=== PATIENT | male | born 1945 | race Caucasian/White ===

== ENCOUNTER 2018-09-24 19:08 | Emergency (ER) | payer OTHER ==
[~2018-09-24] VITALS: Ht 175.3 cm; Wt 113.4 kg
[2018-09-24] MEDS ORDERED: METFORMIN HCL500 MG PO (19:25)
[2018-09-24] MEDS ORDERED: COZAAR 25 MG TA25 M1 PO (19:25)
[2018-09-24] MEDS ORDERED: HYDROCHLOROTHIA25 M2 PO (19:25)
[2018-09-24] MEDS ORDERED: LOPRESSOR50 PO (19:26)
[2018-09-24] MEDS ORDERED: NITROGLYCERIN0.4 MG SUBLING (19:26)
[2018-09-24] MEDS ORDERED: ASPIRIN325 PO (19:26)
[2018-09-24] MEDS ORDERED: CRESTOR40 MG PO (19:26)
[2018-09-24] MEDS ORDERED: UNICOMPLEX M TA1 TA1 PO (19:27)
[2018-09-24] MEDS ORDERED: PRILOSEC 20 MG20 MG PO (19:27)
[2018-09-24] MEDS ORDERED: CALCIUM 600 +1 EAC1 PO (19:27)
[2018-09-24] MEDS ORDERED: PYRIDOXINE HCL50 MG PO (19:27)
[2018-09-24] MEDS ORDERED: ZYRTEC10 M5 PO (19:28)
[2018-09-24 19:55] LABS: INFLUENZA A ANTIGEN None Detected (None Detect); INFLUENZA B ANTIGEN None Detected (None Detect)
[2018-09-24] MEDS ORDERED: MEDROLDOSEPACK PO (19:59)
[2018-09-24] MEDS ORDERED: VENTOLIN HFA 1818 GM INH ×2 (19:59→20:00)
[2018-09-24] MEDS ORDERED: PROMETH-CODEIN 65 ML PO (19:59)
[2018-09-24] MEDS ORDERED: ZPAK PO (19:59)
[2018-09-24 20:17] VITALS: BP 113/88
== END 2018-09-24 20:18 | disposition home or self-care (01) ==
LOC: M.ERS 19:08
PROVIDERS: Nurse Practitioner Family
DX: J20.9 Acute bronchitis, unspecified (principal); I10 Essential (primary) hypertension

== ENCOUNTER 2019-08-16 16:47 | Inpatient (IN) | payer OTHER ==
[~2019-08-16] VITALS: Ht 175.3 cm; Wt 108.4 kg
[~2019-08-16 16:47] MED LIST: ASPIRIN325 PO; CALCIUM 600 +1 EAC1 PO; COZAAR 25 MG TA25 M1 PO; CRESTOR40 MG PO; HYDROCHLOROTHIA25 M2 PO; LOPRESSOR50 PO; MEDROLDOSEPACK PO; METFORMIN HCL500 MG PO; NITROGLYCERIN0.4 MG SUBLING; PRILOSEC OTC20 MG PO; PROMETH-CODEIN 65 ML PO; PYRIDOXINE HCL50 MG PO; UNICOMPLEX M TA1 TA1 PO; VENTOLIN HFA 1818 GM INH; ZPAK PO; ZYRTEC10 M5 PO
[2019-08-16 17:32] VITALS: BP 152/68
[2019-08-16 17:44] LABS: INFLUENZA A ANTIGEN Positive (Negative); INFLUENZA B ANTIGEN Negative (Negative)
[2019-08-16 18:09] LABS: ABSOLUTE BASOPHILS 0.1 thou/uL (0.0-0.2); ABSOLUTE LYMPHOCYTES 1.4 thou/uL (0.8-5.3); ABSOLUTE MONOCYTES 1.4 thou/uL (0.0-1.2); ABSOLUTE NEUTROPHILS 7.5 thou/uL (1.6-8.1); BASOPHILS 0.8 %; EOSINOPHILS 0.1 %; HEMATOCRIT 42.3 % (42.0-52.0); HEMOGLOBIN 14.4 gm/dL (14.0-18.0); LYMPHOCYTES 13.9 %; MCH 28.7 pg (26.0-34.0); MCHC 34.2 g/dL (28.0-37.0); MCV 84.1 fL (80.0-100.0); MONOCYTES 13.1 %; MPV 7.9 fl. (7.2-11.1); NUCLEATED RBCS 0 /100WBC; PLATELET COUNT* 260 thou/uL (150-400); POLYS 72.1 %; RBC 5.03 mil/uL (4.50-6.00); RDW-CV 15.4 % (10.5-14.5); WBC 10.4 thou/uL (4.0-11.0)
[2019-08-16 18:20] LABS: CALCIUM 8.8 mg/dL (8.5-10.1); CREATININE 1.2 mg/dL (0.6-1.3); POTASSIUM 3.5 mmol/L (3.5-5.1)
[2019-08-16 18:25] LABS: ALBUMIN 3.9 g/dL (3.4-5.0); TOTAL BILIRUBIN 0.7 mg/dL (<0.1-1.0); TOTAL PROTEIN 7.8 g/dL (6.4-8.2)
[2019-08-16 21:48] VITALS: BP 140/76
--- NOTE | 2019-08-17 02:28 | NUR ---
PT ADMITTED TO FLOOR PER BED ACCOMPANEID BY ER STAFF WITH BELONGINGS. ORIENTED TO ROOM AND CALL LITE. PT DROWSY, DENIES PAIN OR PROBLEMS AT PRESENT. CALL LITE IN EASY REACH, BED ALARM ON FOR SAFETY. PLACED ON DROPLET PRECAUTIONS FOR +FLU A. WILL CONTINUE TO MONITOR AND PROVIDE CARES NEEDED.
[2019-08-17 02:30] VITALS: BP 102/53
[2019-08-17 02:48] VITALS: BP 106/45
[2019-08-17 05:27] LABS: ABSOLUTE LYMPHOCYTES 1.2 thou/uL (0.8-5.3); ABSOLUTE MONOCYTES 0.3 thou/uL (0.0-1.2); ABSOLUTE NEUTROPHILS 5.8 thou/uL (1.6-8.1); BASOPHILS 0.2 %; HEMATOCRIT 38.5 % (42.0-52.0); HEMOGLOBIN 13.4 gm/dL (14.0-18.0); MCH 29.2 pg (26.0-34.0); MCHC 34.8 g/dL (28.0-37.0); MCV 83.8 fL (80.0-100.0); MONOCYTES 3.8 %; MPV 7.8 fl. (7.2-11.1); NUCLEATED RBCS 0 /100WBC; PLATELET COUNT* 253 thou/uL (150-400); RBC 4.59 mil/uL (4.50-6.00); RDW-CV 15.2 % (10.5-14.5); WBC 7.3 thou/uL (4.0-11.0)
--- NOTE | 2019-08-17 05:41 | NUR ---
PT ADMIT TO FLOOR FROM ER BOARDING, HAS SLEPT WELL SINCE ADMIT. DENIES PAIN OR PROBLEMS. AM LABS. USING URINAL TO VOID.RAC IVF INFUSING PER PUMP. DROPLET ISOLATION FOR +FLU A. CALL LITE IN EASY REACH, BED ALARM ON FOR SAFETY.
[2019-08-17 05:55] LABS: CALCIUM 8.4 mg/dL (8.5-10.1); POTASSIUM 3.8 mmol/L (3.5-5.1)
[2019-08-17 08:00] VITALS: BP 126/62
--- NOTE | 2019-08-17 15:26 | NUR ---
CM ASSESSMENT: PT LIVES AT HOME ALONE. PT STATES HE IS INDEPENDENT AND DRIVES. DENIES NEEDS. CM WILL REMAIN AVAILABLE IF NEEDED
--- NOTE | 2019-08-17 18:17 | NUR ---
PT A&OX4 VSS. PT ON BEDREST TODAY. PT +FLU A. PT REMAINS ON ISOLATION PRECAUTIONS. PT USES URINAL AT BEDSIDE, BRIEFS FOR STRESS INCONTINENCE. PT IS ACCUCHECK, PO MEDICATIONS ADMINISTERED TO MANAGE DM. PT REMAINS FEBRILE THIS SHIFT. PT ON ROOM AIR, SAT 94%. PT HAS COUGH, BUT LUNGS SOUND CLEAR ON AUSCULTATION. IV TO RAC, NS RUNNING AT 100ML/HOUR. PT RESTS IN ROOM WITH CALL LIGHT IN REACH. WILL CONTINUE TO MONITOR.
[2019-08-17 19:40] VITALS: BP 128/63
--- NOTE | 2019-08-18 06:06 | NUR ---
PT ALERT AND ORIENTED. VSS ON RA. MEDS GIVEN PER EMAR. PT DENIES PAIN N/V THIS SHIFT. DROPLET ISOLATION FOR FLU A. FALL PRECAUTION IN PLACE. PT TO URINAL FOR VOIDING. CALL LIGHT WITHIN REACH. HOURLY ROUNDINGS MADE. WILL CONTINUE TO MONITOR.
[2019-08-18 07:40] VITALS: BP 124/64
--- NOTE | 2019-08-18 16:28 | NUR ---
SW called and spke with with pt son to discuss safe dc planning. Pt had mentioned desire to dc to [place] where his now receives therapy or possibly lives computer terminal operator. SW discussed pt not meeting SNF criteria and therapy recommendations for pt to be able to dc home with services to follow. Pt son supportive and understanding of the plan for pt to be able to dc home and plans for dc home tomorrow/Thursday; pt son could black pickler about 1 pm. Pt son mentioned that pt had a bed bug problem at home but that pt son said he paid for profressional cleaning to hopefully cure the bed bug issue. SW to continue to follow to assist with safe dc planning.
--- NOTE | 2019-08-18 16:33 | NUR ---
PATIENT UP WITH THERAPY TODAY, UTILIZING WALKER. PATIENT UP TO CHAIR THIS AFTERNOON. NO COMPLAINTS OF PAIN. IV SL. PATIENT REMAINS IN DROPLET PRECAUTIONS. POSSIBLE DISCHARGE TOMORROW TO HOME WITH HOME HEALTH.
[2019-08-18 17:00] VITALS: BP 151/75
[2019-08-18 19:40] VITALS: BP 130/71
--- NOTE | 2019-08-19 06:05 | NUR ---
PT ALERT AND ORIENTED. VSS ON RA. MEDS GIVEN PER EMAR. PT SLEPT WELL THIS SHIFT. PT UP TO BATHROOM. HAD A SMALL BM TODAY. COUGH MED ORDERED PER DR RIOS. ISOLATION PRECAUTION IN PLACE. FALL PRECAUTION. CALL LIGHT WITHIN REACH. HOURLY ROUNDINGS MADE. WILL CONTINUE TO MONITOR.
[2019-08-19 08:00] VITALS: BP 143/83
[2019-08-19 10:20] VITALS: BP 143/83
[2019-08-19] MEDS ORDERED: BENZONATATE100 MG PO (11:32)
[2019-08-19] MEDS ORDERED: TAMIFLU75 MG PO (11:33)
--- NOTE | 2019-08-19 12:19 | NUR ---
CONFIRMED WITH ELAINE/MOE AT [facility] [phone], THAT THEY HAVE REVIEWED REFERRAL AND WILL CALL TO MAKE AN APPOINTMENT TO SEE THE PATIENT ON 08/21/19. CONTACTED SHABBIR VENEGAS (SON) [phone] AND GAVE HIM THE NAME OF THE HOME HEALTH SERVICE AND WHEN THEY'RE SCHEDULED TO SEE HIS FATHER.
[2019-08-19 12:27] VITALS: BP 143/83
[2019-08-19 13:16] VITALS: BP 143/83
--- NOTE | 2019-08-19 14:05 | NUR ---
PATIENT UP AND AMBULATING WITHOUT DIFFICULTY WITH PT, UTILZING WALKER. IV DC'D. PATIENT TO DISCHARGE TO HOME WITH HOME HEALTH. PATIENT VERBALIZES UNDERSTANDING OF PAPERWORK AND SCRIPTS SENT OVER. PATIENT TAKEN OUT VIA WHEELCHAIR WITH ALL BELONGINGS.
== END 2019-08-19 14:07 | disposition home health service (06) | DRG 194 ==
LOC: M.ERS 16:47 → M.3W 18:34 → M.ERS 18:34 → M.TBA-ER 18:34 → M.3W 08-17 02:39
PROVIDERS: Family Medicine; ADMIT Internal Medicine
DX: J10.1 Influenza due to other identified influenza virus with other respiratory manifestations (principal); J98.11 Atelectasis; J20.9 Acute bronchitis, unspecified; E78.5 Hyperlipidemia, unspecified; I10 Essential (primary) hypertension; R06.03 Acute respiratory distress; I25.10 Atherosclerotic heart disease of native coronary artery without angina pectoris; E86.0 Dehydration; R42 Dizziness and giddiness; I25.2 Old myocardial infarction; Z95.5 Presence of coronary angioplasty implant and graft; Z79.2 Long term (current) use of antibiotics; Z79.82 Long term (current) use of aspirin; Z79.84 Long term (current) use of oral hypoglycemic drugs; Z79.899 Other long term (current) drug therapy